=== PATIENT | female | born 1990 | race Hispanic/Latino ===

== ENCOUNTER → 2019-12-13 | Day surgery (SDC) | payer OTHER ==
[2019-12-09 10:19] LABS: BASOPHILS % 0.4 % (0.0-1.0); EOSINOPHILS # (AUTO) 0.1 (0.0-0.4); EOSINOPHILS % 1.9 % (0.0-6.0); HEMATOCRIT 40.6 % (34.2-44.1); HEMOGLOBIN 12.9 g/dL (12.0-16.0); LYMPHOCYTES # (AUTO) 1.9 (1.0-3.2); LYMPHOCYTES % 25.9 % (18.0-39.1); MEAN CORPUSCULAR HEMOGLOBIN 25.8 pg (28-32); MEAN CORPUSCULAR HGB CONC 31.8 g/dL (31-35); MEAN CORPUSCULAR VOLUME 81.2 fL (81-99); MONOCYTES # (AUTO) 0.5 (0.2-0.8); NEUTROPHILS # (AUTO) 4.7 (2.1-6.9); NEUTROPHILS % 64.7 % (38.7-80.0); PLATELET COUNT 234 x10e3/uL (140-360); RED CELL DISTRIBUTION WIDTH 16.6 % (11.7-14.4)
[2019-12-09 11:16] LABS: ALANINE AMINOTRANSFERASE 66 IU/L (0-55); ALBUMIN 3.6 g/dL (3.5-5.0); ALBUMIN/GLOBULIN RATIO 0.9 (0.8-2.0); ALKALINE PHOSPHATASE 85 IU/L (40-150); ANION GAP 12.4 mmol/L (8-16); BLOOD UREA NITROGEN 12 mg/dL (7-26); BUN/CREATININE RATIO 18 (6-25); CALCIUM 8.9 mg/dL (8.4-10.2); CARBON DIOXIDE 25 mmol/L (22-29); CHLORIDE 104 mmol/L (98-107); CREATININE, SERUM 0.68 mg/dL (0.57-1.11); EST GLOMERULAR FILTRATION RATE > 60 ML/MIN (60-); GLUCOSE 111 mg/dL (74-118); POTASSIUM 3.4 mmol/L (3.5-5.1); SODIUM 138 mmol/L (136-145)
[~2019-12-13] MED LIST: ACETAMINOPHEN 1000 MG/100 ML IV ONE; BUPIVACAINE 0.5%/EPI 30 ML SDV INJ ONE; DEXAMETHASONE SOD PHOS INJ 4 MG/ML VIAL ONE; FENTANYL CITRATE/PF 100MCG/2 ML INJ ONE; GLYCOPYRROLATE INJ 0.2 MG/ML VIAL ONE; KETOROLAC TROMETHAMINE 30 MG/ML VIAL ONE; LIDOCAINE HCL 2% LOCAL INJ 5 ML SDV VIAL INJ ONE; MIDAZOLAM HCL 2 MG/2 ML VIAL ONE; NEOSTIGMINE 1 MG/ML 10ML VIAL ONE; ONDANSETRON HCL INJ 2MG/ML 2ML 2 MG/ML VIAL ONE; PROPOFOL IV EMULSION 10 MG/ML 20 ML VIAL ONE; ROCURONIUM BROMIDE 10 MG/ML 5ML VIAL IV ONE; SEVOFLURANE INHAL SOLN 250 ML PEN BTL ONE
--- OUTSIDE RECORDS SUMMARY | 2019-12-13 06:33 | XMS REPORT ---
Author Author [facility] Organization [facility] Address Unknown Phone Unavailable Care Team Providers Care Assembler Crimper Name Role Phone Unavailable Unavailable Payers Payer Name Policy Type Policy Number Effective Date Expiration Date Problems This patient has no known problems. Allergies, Adverse Reactions, Alerts Allergy Name Allergy Type Status Severity Reaction(s) Onset Date Inactive Date Treating Clinician Comments No Known Allergies DA Active U 2016-03-20 00:00:00 Medications This patient has no known medications. Encounters Start Date/Time End Date/Time Encounter Type Admission Type Attending Clinicians Care Facility Care Department Encounter ID 2018-12-17 21:08:24 Inpatient [facility] [id number] 2017-05-06 00:00:00 2017-05-06 00:00:00 Outpatient [facility] [id number] 2017-04-25 00:00:00 2017-04-25 00:00:00 Outpatient [facility] [id number] 2017-03-19 00:00:00 2017-03-19 00:00:00 Outpatient [facility] [id number] 2016-05-31 10:32:11 2016-05-31 10:32:11 Outpatient [facility] [id number] Results Test Description Test Time Test Comments Text Results Atomic Results Result Comments COCAINE PROFILE 2019-12-05 09:38:00 COCAINE + METABOLITES (test code=COCAM) DETECTED Results Confirm Screen Value Cutoff COCAINE benzoylecgonine DETECTED 84 ng/mL 150 ng/mL Test performed by: [facility] [address] [place] [address]. Drug Safety Associate: Jose G Green, Ph.D. BASIC METABOLIC [id number] 23:29:00* Test Item Value Reference Range Comments SODIUM (test code=NA) 141 mmol/L 135-148 POTASSIUM (test code=K) 3.4 mmol/L 3.5-5.1 CHLORIDE (test code=CL) 102 mmol/L 101-109 CARBON DIOXIDE (test code=CO2) 25.5 mmol/L 21-32 ANION GAP (test code=GAP) 17 mmol/L 10-20 GLUCOSE (test code=GLU) 99 mg/dL 74-106 BLOOD UREA NITROGEN (test code=BUN) 17 mg/dL 3-21 GLOMERULAR FILTRATION RATE (test code=GFR) > 60 mL/min >=60 Estimated GFR by using Modified MDRD formula.Chronic kidney disease is defined as either kidney damageor GFR <60 mL/min/1.73 m2 for >3 months. CREATININE (test code=CREAT) 0.77 mg/dL 0.55-1.3 BUN/CREATININE RATIO (test code=BUN/CREA) 22.1 10-20 CALCIUM (test code=CA) 8.8 mg/dL 8.4-10.2 HEPATIC FUNCTION [id number] 23:29:00* Test Item Value Reference Range Comments TOTAL PROTEIN (test code=PROT) 7.8 g/dL 6.5-8.4 ALBUMIN (test code=ALB) 3.3 g/dL 3.4-4.8 GLOBULIN (test code=GLOB) 4.5 G/DL 1-10 ALBUMIN/GLOBULIN RATIO (test code=A/G) 0.73 RATIO 0.75-1.50 BILIRUBIN TOTAL (test code=BILT) 0.30 mg/dL 0.0-1.0 BILIRUBIN DIRECT (test code=BILD) 0.10 mg/dL 0.0-0.30 SGOT/AST (test code=AST) 86 U/L 6-32 SGPT/ALT (test code=ALT) 58 U/L 12-78 Note: Change in REFERENCE RANGE due to new reagent method. ALKALINE PHOSPHATASE TOTAL (test code=ALKP) 99 U/L 38-126 [id number] 23:29:00* Test Item Value Reference Range Comments LIPASE (test code=LIP) 172 U/L 128-270 DRUGS OF ABUSE SCREEN [id number] 23:26:00* Test Item Value Reference Range Comments URN COCAINE (test code=COCAURN) NEGATIVE NEGATIVE URN CANNABINOIDS (test code=CANNABURN) NEGATIVE NEGATIVE URN AMPHETAMINE (test code=AMPHETURN) NEGATIVE NEGATIVE URN BARBITURATE (test code=BARBITURN) NEGATIVE NEGATIVE URN BENZODIAZEPINE (test code=BENZOURN) NEGATIVE NEGATIVE URN OPIATES (test code=OPIATURN) NEGATIVE NEGATIVE URN PHENCYCLIDINE (PCP) (test code=PHENCURN) NEGATIVE NEGATIVE BASIC METABOLIC [id number] 23:23:00* Test Item Value Reference Range Comments SODIUM (test code=NA) 141 mmol/L 135-148 POTASSIUM (test code=K) 3.4 mmol/L 3.5-5.1 CHLORIDE (test code=CL) 102 mmol/L 101-109 CARBON DIOXIDE (test code=CO2) 25.5 mmol/L 21-32 ANION GAP (test code=GAP) 17 mmol/L 10-20 GLUCOSE (test code=GLU) 99 mg/dL 74-106 BLOOD UREA NITROGEN (test code=BUN) 17 mg/dL 3-21 GLOMERULAR FILTRATION RATE (test code=GFR) > 60 mL/min >=60 Estimated GFR by using Modified MDRD formula.Chronic kidney disease is defined as either kidney damageor GFR <60 mL/min/1.73 m2 for >3 months. CREATININE (test code=CREAT) 0.77 mg/dL 0.55-1.3 BUN/CREATININE RATIO (test code=BUN/CREA) 22.1 10-20 CALCIUM (test code=CA) 8.8 mg/dL 8.4-10.2 HEPATIC FUNCTION [id number] 23:23:00* Test Item Value Reference Range Comments TOTAL PROTEIN (test code=PROT) 7.8 g/dL 6.5-8.4 ALBUMIN (test code=ALB) g/dL 3.4-5.0 GLOBULIN (test code=GLOB) g/dL 2.7-4.2 ALBUMIN/GLOBULIN RATIO (test code=A/G) 0.75-1.50 BILIRUBIN TOTAL (test code=BILT) 0.30 mg/dL 0.0-1.0 BILIRUBIN DIRECT (test code=BILD) 0.10 mg/dL 0.0-0.30 SGOT/AST (test code=AST) 86 U/L 6-32 SGPT/ALT (test code=ALT) 58 U/L 12-78 Note: Change in REFERENCE RANGE due to new reagent method. ALKALINE PHOSPHATASE TOTAL (test code=ALKP) 99 U/L 38-126 [id number] 23:23:00* Test Item Value Reference Range Comments LIPASE (test code=LIP) Unit/L 144-286 BASIC METABOLIC [id number] 23:16:00* Test Item Value Reference Range Comments SODIUM (test code=NA) 141 mmol/L 135-148 POTASSIUM (test code=K) 3.4 mmol/L 3.5-5.1 CHLORIDE (test code=CL) 102 mmol/L 101-109 CARBON DIOXIDE (test code=CO2) 25.5 mmol/L 21-32 ANION GAP (test code=GAP) 17 mmol/L 10-20 GLUCOSE (test code=GLU) 99 mg/dL 74-106 BLOOD UREA NITROGEN (test code=BUN) 17 mg/dL 3-21 GLOMERULAR FILTRATION RATE (test code=GFR) > 60 mL/min >=60 Estimated GFR by using Modified MDRD formula.Chronic kidney disease is defined as either kidney damageor GFR <60 mL/min/1.73 m2 for >3 months. CREATININE (test code=CREAT) 0.77 mg/dL 0.55-1.3 BUN/CREATININE RATIO (test code=BUN/CREA) 22.1 10-20 CALCIUM (test code=CA) 8.8 mg/dL 8.4-10.2 HEPATIC FUNCTION [id number] 23:16:00* Test Item Value Reference Range Comments TOTAL PROTEIN (test code=PROT) gram/dL 6.4-8.2 ALBUMIN (test code=ALB) g/dL 3.4-5.0 GLOBULIN (test code=GLOB) g/dL 2.7-4.2 ALBUMIN/GLOBULIN RATIO (test code=A/G) 0.75-1.50 BILIRUBIN TOTAL (test code=BILT) mg/dL 0.2-1.2 BILIRUBIN DIRECT (test code=BILD) mg/dL 0.0-0.20 SGOT/AST (test code=AST) IUnit/L 15-37 SGPT/ALT (test code=ALT) U/L 10-69 ALKALINE PHOSPHATASE TOTAL (test code=ALKP) IUnit/L 45-117 [id number] 23:16:00* Test Item Value Reference Range Comments LIPASE (test code=LIP) Unit/L 144-286 - US ABDOMEN [id number] 23:04:00 Name: ANDERSON HARMON [facility] : 1990 Age/S: 29 / F [address] Unit #: [id number] Loc: [place] [address] Phys: Gómez Laureano MD Acct: [id number] Dis Date: Status: REG ER PHONE #: [phone] Exam Date: 11/30/20198 FAX #: [phone] Reason: Abdominal Pain EXAMS: CPT CODE: [id number] ABDOMEN LTD 22833 EXAM: Ultrasound abdomen limited LOCATION: C3 HISTORY: Abdominal Pain COMPARISON: None available TECHNIQUE: Grayscale B-mode and color Doppler sonographic images of the right upper quadrant were obtained. Spectral Doppler analysis of the main portal vein was performed. FINDINGS: Stone identified in the gallbladder. No gallbladder wall thickening or pericholecystic fluid. The common bile duct is within normal limits measuring 4 mm. Liver is top normal in size measuring 17.2 cm. Liver demonstrates diffuse increase in echogenicity without focal lesion. The main portal vein is patent with hepatopetal flow. The visualized right kidney and pancreas show no significant abnormalities. IMPRESSION: Hepatic steatosis. Cholelithiasis. No gallbladder wall thickening or pericholecystic fluid, however sonographic Ren's sign was positive. A HIDA scan may be obtained if there is concern for cystic duct obstru ction. at 2304 Re ported and signed by: Ricky Linares M.D. CC: Gómez Laureano MD; Vidhya Rosa MD Technologist: Chao Rousseau RDMS Trnscb Date/Time: 11/30/2019 (5520) [id number] Orig Print D/T: S: 11/30/2019 (6151) Probe: PAGE 1 Signed Report CBC W/O DIFF 2019-11-30 22:38:00* Test Item Value Reference Range Comments WHITE BLOOD CELL (test code=WBC) 11.7 K/mm3 4.5-12.5 RED BLOOD CELL (test code=RBC) 5.14 mill/mm3 3.7-5.2 HEMOGLOBIN (test code=HGB) 12.9 gram/dL 11.5-15.5 HEMATOCRIT (test code=HCT) 41.6 % 36.0-46.0 MEAN CELL VOLUME (test code=MCV) 80.9 fL 80-98 MEAN CELL HGB (test code=MCH) 25.1 picogram 27.0-33.0 MEAN CELL HGB CONCETRATION (test code=MCHC) 31.0 gram/dL 33.0-36.0 RED CELL DISTRIBUTION WIDTH (test code=RDW) 15.5 % 11.6-16.2 RED CELL DISTRIBUTION WIDTH SD (test code=RDW-SD) 46.1 fL 37.0-51.0 PLATELET COUNT (test code=PLT) 234 K/mm3 150-450 MEAN PLATELET VOLUME (test code=MPV) 10.8 fL 6.7-11.0 URINALYSIS [id number] 22:21:00* Test Item Value Reference Range Comments UA COLOR (test code=COLU) YELLOW YELLOW UA APPEARANCE (test code=APPU) SLIGHT CLOUDY CLEAR UA GLUCOSE DIPSTICK (test code=DGLUU) norm mg/dL NEGATIVE UA BILIRUBIN DIPSTICK (test code=BILU) NEGATIVE mg/dL NEGATIVE UA KETONE DIPSTICK (test code=KETU) 5 (Trace) mg/dL NEGATIVE UA SPECIFIC GRAVITY (test code=SGU) 1.015 1.001-1.035 UA BLOOD DIPSTICK (test code=TAYLOR) neg Vlad/uL NEGATIVE UA PH DIPSTICK (test code=BRUCE) 7.0 5.0-8.0 UA PROTEIN DIPSTICK (test code=PROU) neg mg/dL Neg-15 UA UROBILINIOGEN DIPSTICK (test code=URO) norm mg/dL 0.0-0.2 UA NITRITE DIPSTICK (test code=LANNY) NEGATIVE NEGATIVE UA LEUKOCYTE ESTERASE DIPSTICK (test code=LEUU) 100 Jose Francisco/uL (1+) uL NEGATIVE UA WBC (test code=WBCU) 3-5 per HPF 0-5 UA RBC (test code=RBCU) NONE SEEN per HPF 0-5 UA EPITHELIAL CELLS (test code=EPIU) Moderate (5-10/hpf) per HPF Few UA BACTERIA (test code=BACU) MANY per HPF NONE Urine Source? Clean CatchUR HCG [id number] 22:21:00* Test Item Value Reference Range Comments UR HCG QUAL (test code=HCGQLU) NEGATIVE This HCGQL test is NOT applicable for MALE patients.Check with nurse about probable order error.If Tumor Marker Test needed, nurse should order test "HCGTU"(Test #550.56679) Urine Source? Clean CatchURINALYSIS [id number] 22:20:00* Test Item Value Reference Range Comments UA COLOR (test code=COLU) YELLOW YELLOW UA APPEARANCE (test code=APPU) SLIGHT CLOUDY CLEAR UA GLUCOSE DIPSTICK (test code=DGLUU) norm mg/dL NEGATIVE UA BILIRUBIN DIPSTICK (test code=BILU) NEGATIVE mg/dL NEGATIVE UA KETONE DIPSTICK (test code=KETU) 5 (Trace) mg/dL NEGATIVE UA SPECIFIC GRAVITY (test code=SGU) 1.015 1.001-1.035 UA BLOOD DIPSTICK (test code=TAYLOR) neg Vlad/uL NEGATIVE UA PH DIPSTICK (test code=BRUCE) 7.0 5.0-8.0 UA PROTEIN DIPSTICK (test code=PROU) neg mg/dL Neg-15 UA UROBILINIOGEN DIPSTICK (test code=URO) norm mg/dL 0.0-0.2 UA NITRITE DIPSTICK (test code=LANNY) NEGATIVE NEGATIVE UA LEUKOCYTE ESTERASE DIPSTICK (test code=LEUU) 100 Jose Francisco/uL (1+) uL NEGATIVE UA WBC (test code=WBCU) per HPF 0-5 UA RBC (test code=RBCU) per HPF 0-5 UA EPITHELIAL CELLS (test code=EPIU) per HPF Few UA BACTERIA (test code=BACU) per HPF NONE Urine Source? Clean CatchUR HCG [id number] 22:20:00* Test Item Value Reference Range Comments UR HCG QUAL (test code=HCGQLU) NEGATIVE This HCGQL test is NOT applicable for MALE patients.Check with nurse about probable order error.If Tumor Marker Test needed, nurse should order test "HCGTU"(Test #550.58065) Urine Source? Clean CatchURINALYSIS [id number] 22:19:00* Test Item Value Reference Range Comments UA COLOR (test code=COLU) YELLOW YELLOW UA APPEARANCE (test code=APPU) SLIGHT CLOUDY CLEAR UA GLUCOSE DIPSTICK (test code=DGLUU) norm mg/dL NEGATIVE UA BILIRUBIN DIPSTICK (test code=BILU) NEGATIVE mg/dL NEGATIVE UA KETONE DIPSTICK (test code=KETU) 5 (Trace) mg/dL NEGATIVE UA SPECIFIC GRAVITY (test code=SGU) 1.015 1.001-1.035 UA BLOOD DIPSTICK (test code=TAYLOR) neg Vlad/uL NEGATIVE UA PH DIPSTICK (test code=BRUCE) 7.0 5.0-8.0 UA PROTEIN DIPSTICK (test code=PROU) neg mg/dL Neg-15 UA UROBILINIOGEN DIPSTICK (test code=URO) norm mg/dL 0.0-0.2 UA NITRITE DIPSTICK (test code=LANNY) NEGATIVE NEGATIVE UA LEUKOCYTE ESTERASE DIPSTICK (test code=LEUU) 100 Jose Francisco/uL (1+) uL NEGATIVE UA WBC (test code=WBCU) per HPF 0-5 UA RBC (test code=RBCU) per HPF 0-5 UA EPITHELIAL CELLS (test code=EPIU) per HPF Few UA BACTERIA (test code=BACU) per HPF NONE Urine Source? Clean CatchUR HCG [id number] 22:19:00* Test Item Value Reference Range Comments UR HCG QUAL (test code=HCGQLU) Urine Source? Clean [id number] 00:05:00* Test Item Value Reference Range Comments D-DIMER (test code=DDIMER) < 100 ng/ml < 600 - US ABDOMEN [id number] 23:49:00 [facility] 1990 Age[facility]S: 29 / F [address] Unit #: [id number] Loc: [place] [address] Phys: Mirella Jackson MD Acct: [id number] Dis Date: Status: REG ER PHONE #: [phone] Exam Date: 05/27/20192339 FAX #: [phone] Reason: CP EXAMS: CPT CODE: [id number] US ABDOMEN LTD 68887 EXAM: - US ABDOMEN LTD HISTORY: Pain COMPARISON: None available time of interpretation. TECHNIQUE: Grayscale B-mode and color Doppler sonographic images of the right upper quadrant were obtained. FINDINGS: Shadowing gallstones are present. No significant gallbladder wall thickening or pericholecystic fluid. The common bile duct is within normal limits measuring 4 mm. No focal liver lesion is demonstrated. Hepatopedal flow is present in main portal vein. The visualized right kidney, IVC, and abdominal aorta show no significant abnormalities. The pancreas is not visualized. Limited exam. IMPRESSION: Cholelithiasis. No evidence of acute cholecystitis. at 2349 Reported and signed by: Silvestre Linares MD CC: Ina Rosa MD Technologist: Lynn Ruiz Trnksb Date/Time: 05/27/2019 (6708) [id number] Orig Print D/T: S: 05/27/2019 (0347) Probe: PAGE 1 Signed Report URINALYSIS [id number] 23:46:00* Test Item Value Reference Range Comments UA COLOR (test code=COLU) YELLOW YELLOW UA APPEARANCE (test code=APPU) CLEAR CLEAR UA GLUCOSE DIPSTICK (test code=DGLUU) norm mg/dL NEGATIVE UA BILIRUBIN DIPSTICK (test code=BILU) NEGATIVE mg/dL NEGATIVE UA KETONE DIPSTICK (test code=KETU) neg mg/dL NEGATIVE UA SPECIFIC GRAVITY (test code=SGU) 1.020 1.001-1.035 UA BLOOD DIPSTICK (test code=TAYLOR) neg Vlad/uL NEGATIVE UA PH DIPSTICK (test code=BRUCE) 6.0 5.0-8.0 UA PROTEIN DIPSTICK (test code=PROU) neg mg/dL Neg-15 UA UROBILINIOGEN DIPSTICK (test code=URO) norm mg/dL 0.0-0.2 UA NITRITE DIPSTICK (test code=LANNY) NEGATIVE NEGATIVE UA LEUKOCYTE ESTERASE DIPSTICK (test code=LEUU) neg uL NEGATIVE UA WBC (test code=WBCU) 0-5 per HPF 0-5 UA RBC (test code=RBCU) 0-3 per HPF 0-5 UA EPITHELIAL CELLS (test code=EPIU) Few (2-5/hpf) per HPF Few UA BACTERIA (test code=BACU) FEW per HPF NONE Urine Source? Clean CatchDRUGS OF ABUSE SCREEN [id number] 23:46:00* Test Item Value Reference Range Comments URN COCAINE (test code=COCAURN) NEGATIVE NEGATIVE URN CANNABINOIDS (test code=CANNABURN) NEGATIVE NEGATIVE URN AMPHETAMINE (test code=AMPHETURN) NEGATIVE NEGATIVE URN BARBITURATE (test code=BARBITURN) NEGATIVE NEGATIVE URN BENZODIAZEPINE (test code=BENZOURN) NEGATIVE NEGATIVE URN OPIATES (test code=OPIATURN) NEGATIVE NEGATIVE URN PHENCYCLIDINE (PCP) (test code=PHENCURN) NEGATIVE NEGATIVE Urine Source? Clean CatchBASIC METABOLIC [id number] 23:43:00* Test Item Value Reference Range Comments SODIUM (test code=NA) 140 mmol/L 136-145 POTASSIUM (test code=K) 3.3 mmol/L 3.5-5.1 CHLORIDE (test code=CL) 103 mmol/L 101-109 CARBON DIOXIDE (test code=CO2) 25.5 mmol/L 21-32 ANION GAP (test code=GAP) 15 mmol/L 10-20 GLUCOSE (test code=GLU) 113 mg/dL 74-106 BLOOD UREA NITROGEN (test code=BUN) 17 mg/dL 3-21 GLOMERULAR FILTRATION RATE (test code=GFR) > 60 mL/min >=60 Estimated GFR by using Modified MDRD formula.Chronic kidney disease is defined as either kidney damageor GFR <60 mL/min/1.73 m2 for >3 months. CREATININE (test code=CREAT) 0.71 mg/dL 0.55-1.3 BUN/CREATININE RATIO (test code=BUN/CREA) 23.9 10-20 CALCIUM (test code=CA) 8.7 mg/dL 8.4-10.2 HEPATIC FUNCTION [id number] 23:43:00* Test Item Value Reference Range Comments TOTAL PROTEIN (test code=PROT) 8.0 g/dL 6.5-8.4 ALBUMIN (test code=ALB) 3.3 g/dL 3.4-4.8 GLOBULIN (test code=GLOB) 4.7 G/DL 1-10 ALBUMIN/GLOBULIN RATIO (test code=A/G) 0.70 RATIO 0.75-1.50 BILIRUBIN TOTAL (test code=BILT) 0.10 mg/dL 0.0-1.0 BILIRUBIN DIRECT (test code=BILD) 0.00 mg/dL 0.0-0.30 SGOT/AST (test code=AST) 27 U/L 6-32 SGPT/ALT (test code=ALT) 32 U/L 12-78 Note: Change in REFERENCE RANGE due to new reagent method. ALKALINE PHOSPHATASE TOTAL (test code=ALKP) 103 U/L 38-126 [id number] 23:43:00* Test Item Value Reference Range Comments LIPASE (test code=LIP) 189 U/L 128-270 HCG SERUM [id number] 23:43:00* Test Item Value Reference Range Comments HCG SERUM QUAL (test code=HCGQL) NEGATIVE NEGATIVE This HCGQL test is NOT applicable for MALE patients.Check with nurse about probable order error.If Tumor Marker Test needed, nurse should order test "HCGTU"(Test #550.34200) [id number] 23:43:00* Test Item Value Reference Range Comments TROPONIN-I (test code=TROPI) <0.015 ng/mL 0.00-0.056 URINALYSIS [id number] 23:39:00* Test Item Value Reference Range Comments UA COLOR (test code=COLU) YELLOW YELLOW UA APPEARANCE (test code=APPU) CLEAR CLEAR UA GLUCOSE DIPSTICK (test code=DGLUU) norm mg/dL NEGATIVE UA BILIRUBIN DIPSTICK (test code=BILU) NEGATIVE mg/dL NEGATIVE UA KETONE DIPSTICK (test code=KETU) neg mg/dL NEGATIVE UA SPECIFIC GRAVITY (test code=SGU) 1.020 1.001-1.035 UA BLOOD DIPSTICK (test code=TAYLOR) neg Vlad/uL NEGATIVE UA PH DIPSTICK (test code=BRUCE) 6.0 5.0-8.0 UA PROTEIN DIPSTICK (test code=PROU) neg mg/dL Neg-15 UA UROBILINIOGEN DIPSTICK (test code=URO) norm mg/dL 0.0-0.2 UA NITRITE DIPSTICK (test code=LANNY) NEGATIVE NEGATIVE UA LEUKOCYTE ESTERASE DIPSTICK (test code=LEUU) neg uL NEGATIVE UA WBC (test code=WBCU) per HPF 0-5 UA RBC (test code=RBCU) per HPF 0-5 UA EPITHELIAL CELLS (test code=EPIU) per HPF Few UA BACTERIA (test code=BACU) per HPF NONE Urine Source? Clean CatchDRUGS OF ABUSE SCREEN [id number] 23:39:00* Test Item Value Reference Range Comments URN COCAINE (test code=COCAURN) NEGATIVE NEGATIVE URN CANNABINOIDS (test code=CANNABURN) NEGATIVE NEGATIVE URN AMPHETAMINE (test code=AMPHETURN) NEGATIVE NEGATIVE URN BARBITURATE (test code=BARBITURN) NEGATIVE NEGATIVE URN BENZODIAZEPINE (test code=BENZOURN) NEGATIVE NEGATIVE URN OPIATES (test code=OPIATURN) NEGATIVE NEGATIVE URN PHENCYCLIDINE (PCP) (test code=PHENCURN) NEGATIVE NEGATIVE Urine Source? Clean CatchURINALYSIS [id number] 23:26:00* Test Item Value Reference Range Comments UA COLOR (test code=COLU) YELLOW YELLOW UA APPEARANCE (test code=APPU) CLEAR CLEAR UA GLUCOSE DIPSTICK (test code=DGLUU) norm mg/dL NEGATIVE UA BILIRUBIN DIPSTICK (test code=BILU) NEGATIVE mg/dL NEGATIVE UA KETONE DIPSTICK (test code=KETU) neg mg/dL NEGATIVE UA SPECIFIC GRAVITY (test code=SGU) 1.020 1.001-1.035 UA BLOOD DIPSTICK (test code=TAYLOR) neg Vlad/uL NEGATIVE UA PH DIPSTICK (test code=BRUCE) 6.0 5.0-8.0 UA PROTEIN DIPSTICK (test code=PROU) neg mg/dL Neg-15 UA UROBILINIOGEN DIPSTICK (test code=URO) norm mg/dL 0.0-0.2 UA NITRITE DIPSTICK (test code=LANNY) NEGATIVE NEGATIVE UA LEUKOCYTE ESTERASE DIPSTICK (test code=LEUU) neg uL NEGATIVE UA WBC (test code=WBCU) per HPF 0-5 UA RBC (test code=RBCU) per HPF 0-5 UA EPITHELIAL CELLS (test code=EPIU) per HPF Few UA BACTERIA (test code=BACU) per HPF NONE Urine Source? Clean CatchDRUGS OF ABUSE SCREEN [id number] 23:26:00* Test Item Value Reference Range Comments URN COCAINE (test code=COCAURN) NEGATIVE URN CANNABINOIDS (test code=CANNABURN) NEGATIVE URN AMPHETAMINE (test code=AMPHETURN) NEGATIVE URN BARBITURATE (test code=BARBITURN) NEGATIVE URN BENZODIAZEPINE (test code=BENZOURN) NEGATIVE URN OPIATES (test code=OPIATURN) NEGATIVE URN PHENCYCLIDINE (PCP) (test code=PHENCURN) NEGATIVE Urine Source? Clean CatchBASIC METABOLIC [id number] 23:19:00* Test Item Value Reference Range Comments SODIUM (test code=NA) 140 mmol/L 136-145 POTASSIUM (test code=K) 3.3 mmol/L 3.5-5.1 CHLORIDE (test code=CL) 103 mmol/L 101-109 CARBON DIOXIDE (test code=CO2) 25.5 mmol/L 21-32 ANION GAP (test code=GAP) 15 mmol/L 10-20 GLUCOSE (test code=GLU) 113 mg/dL 74-106 BLOOD UREA NITROGEN (test code=BUN) 17 mg/dL 3-21 GLOMERULAR FILTRATION RATE (test code=GFR) > 60 mL/min >=60 Estimated GFR by using Modified MDRD formula.Chronic kidney disease is defined as either kidney damageor GFR <60 mL/min/1.73 m2 for >3 months. CREATININE (test code=CREAT) 0.71 mg/dL 0.55-1.3 BUN/CREATININE RATIO (test code=BUN/CREA) 23.9 10-20 CALCIUM (test code=CA) 8.7 mg/dL 8.4-10.2 HEPATIC FUNCTION [id number] 23:19:00* Test Item Value Reference Range Comments TOTAL PROTEIN (test code=PROT) 8.0 g/dL 6.5-8.4 ALBUMIN (test code=ALB) 3.3 g/dL 3.4-4.8 GLOBULIN (test code=GLOB) 4.7 G/DL 1-10 ALBUMIN/GLOBULIN RATIO (test code=A/G) 0.70 RATIO 0.75-1.50 BILIRUBIN TOTAL (test code=BILT) 0.10 mg/dL 0.0-1.0 BILIRUBIN DIRECT (test code=BILD) 0.00 mg/dL 0.0-0.30 SGOT/AST (test code=AST) 27 U/L 6-32 SGPT/ALT (test code=ALT) 32 U/L 12-78 Note: Change in REFERENCE RANGE due to new reagent method. ALKALINE PHOSPHATASE TOTAL (test code=ALKP) 103 U/L 38-126 [id number] 23:19:00* Test Item Value Reference Range Comments LIPASE (test code=LIP) 189 U/L 128-270 HCG SERUM [id number] 23:19:00* Test Item Value Reference Range Comments HCG SERUM QUAL (test code=HCGQL) NEGATIVE [id number] 23:19:00* Test Item Value Reference Range Comments TROPONIN-I (test code=TROPI) <0.015 ng/mL 0.00-0.056 - XR CHEST 1 [id number] 23:13:00 [facility] 1990 Age[facility]S:29 /F [address] Unit#:[id number] Loc: [place] [address] Phys: Mirella Jackson MD Dis Date: PHONE #: [phone] Status: REG ER FAX #: [phone] Exam Date: 05/27/2019 Reason: CHEST PAIN EXAMS: CPT CODE: [id number] XR CHEST 1 V [id number] EXAM: - XR CHEST 1 V HISTORY: Chest pain. COMPARISON: May 19, 2007. FINDINGS: Single AP view of the chest is provided. Heart size and vascularity are within normal limits. The lungs are clear of focal consolidation. No effusion, pneumothorax, or acute osseous abnormality. There is no significant change compared to previous exam. IMPRESSION: No radiographic evidence of acute cardiopulmonary process. at 8052 Reported and signed by: Silvestre Urban MD CC: Ina Rosa MD Technologist: KADE ACEVES RT(R),CT Trnscrpt Data: 05/27/2019 ([id number]) [email or web address] Orig Print D/T: S: 05/27/2019 ([id number]) PAGE 1 Signed Report BASIC METABOLIC [id number] 23:10:00* Test Item Value Reference Range Comments SODIUM (test code=NA) 140 mmol/L 136-145 POTASSIUM (test code=K) 3.3 mmol/L 3.5-5.1 CHLORIDE (test code=CL) 103 mmol/L 101-109 CARBON DIOXIDE (test code=CO2) 25.5 mmol/L 21-32 ANION GAP (test code=GAP) 15 mmol/L 10-20 GLUCOSE (test code=GLU) 113 mg/dL 74-106 BLOOD UREA NITROGEN (test code=BUN) 17 mg/dL 3-21 GLOMERULAR FILTRATION RATE (test code=GFR) > 60 mL/min >=60 Estimated GFR by using Modified MDRD formula.Chronic kidney disease is defined as either kidney damageor GFR <60 mL/min/1.73 m2 for >3 months. CREATININE (test code=CREAT) 0.71 mg/dL 0.55-1.3 BUN/CREATININE RATIO (test code=BUN/CREA) 23.9 10-20 CALCIUM (test code=CA) 8.7 mg/dL 8.4-10.2 HEPATIC FUNCTION [id number] 23:10:00* Test Item Value Reference Range Comments TOTAL PROTEIN (test code=PROT) gram/dL 6.4-8.2 ALBUMIN (test code=ALB) g/dL 3.4-5.0 GLOBULIN (test code=GLOB) g/dL 2.7-4.2 ALBUMIN/GLOBULIN RATIO (test code=A/G) 0.75-1.50 BILIRUBIN TOTAL (test code=BILT) mg/dL 0.2-1.2 BILIRUBIN DIRECT (test code=BILD) mg/dL 0.0-0.20 SGOT/AST (test code=AST) IUnit/L 15-37 SGPT/ALT (test code=ALT) U/L 10-69 ALKALINE PHOSPHATASE TOTAL (test code=ALKP) IUnit/L 45-117 [id number] 23:10:00* Test Item Value Reference Range Comments LIPASE (test code=LIP) Unit/L 144-286 HCG SERUM [id number] 23:10:00* Test Item Value Reference Range Comments HCG SERUM QUAL (test code=HCGQL) NEGATIVE [id number] 23:10:00* Test Item Value Reference Range Comments TROPONIN-I (test code=TROPI) ng/mL 0-0.045 CBC W/O [id number] 22:48:00* Test Item Value Reference Range Comments WHITE BLOOD CELL (test code=WBC) 9.8 K/mm3 4.5-12.5 RED BLOOD CELL (test code=RBC) 4.94 mill/mm3 3.7-5.2 HEMOGLOBIN (test code=HGB) 12.7 gram/dL 11.5-15.5 HEMATOCRIT (test code=HCT) 39.6 % 36.0-46.0 MEAN CELL VOLUME (test code=MCV) 80.2 fL 80-98 MEAN CELL HGB (test code=MCH) 25.7 picogram 27.0-33.0 MEAN CELL HGB CONCETRATION (test code=MCHC) 32.1 gram/dL 33.0-36.0 RED CELL DISTRIBUTION WIDTH (test code=RDW) 14.5 % 11.6-16.2 RED CELL DISTRIBUTION WIDTH SD (test code=RDW-SD) 42.3 fL 37.0-51.0 PLATELET COUNT (test code=PLT) 234 K/mm3 150-450 MEAN PLATELET VOLUME (test code=MPV) 10.9 fL 6.7-11.0
--- NOTE | 2019-12-13 07:25 | NUR ---
SPIRITUAL CARE - Pre-Surgery Assessment: Pt in bed. Pt's at bedside. Pt reported supportive attention from family and friends. Intervention: I provided pastoral presence, hospitality, and sympathetic listening. I acquainted pt with availability of electrician shop while hospitalized. Outcome: Pt expressed appreciation for visit. No need for follow up indicated at this time. ALEXA [facility] Spiritual Care Department O: [phone]
--- NOTE | 2019-12-13 11:12 | Operative Report ---
DATE OF PROCEDURE: 12/13/2019 SURGEON: Cassius Lama MD PREOPERATIVE DIAGNOSES: Cholecystitis and cholelithiasis. POSTOPERATIVE DIAGNOSES: Cholecystitis and cholelithiasis. OPERATION PERFORMED: Laparoscopic cholecystectomy. GEOSCIENCES ASSOCIATE PROFESSOR: Jensen Lama MD. ANESTHESIA: General endotracheal. COMPLICATIONS: None. ESTIMATED BLOOD LOSS: Minimal. DESCRIPTION OF PROCEDURE: With the patient lying in bed in the supine position under good general endotracheal anesthesia, the abdomen was prepped with Betadine solution and draped in the usual manner. A Veress needle was introduced into the right upper quadrant and pneumoperitoneum was established without any difficulty. A 5 mm trocar was placed in the right subcostal region and a 5 mm video laparoscope was placed into the intraabdominal cavity. Under direct vision, an 11 mm trocar was placed into the umbilicus and a 10 mm video laparoscope was placed into the intraabdominal cavity. Under direct vision, two more 5 mm trocars were placed in the right subcostal region. Video laparoscopy at this point revealed a gallbladder that had some adhesions with the duodenum being stuck to the lower half of the gallbladder. There was some fatty infiltration of the liver. The rest of the exploration was otherwise within normal limits. The adhesions to the gallbladder were then slowly and carefully taken down. The peritoneum overlying the neck of the gallbladder was then opened and the cystic duct was identified. The cystic duct was followed to its junction with the common duct. The cystic duct was then circumferentially dissected away from the common duct, doubly clipped and divided. The cystic artery was similarly doubly clipped and divided. The gallbladder was then slowly and carefully taken off the liver bed using the cautery scissors and perfect hemostasis was ascertained. The gallbladder was grasped through the umbilical port and removed. Video laparoscopy was then again carried out. The liver bed was found to be perfectly dry. All the excess fluid was aspirated. The pneumoperitoneum was evacuated and all the trocars were removed under direct vision. The midline fascia at the umbilicus was then closed with a [id number] of 0 Vicryl. All layers were infiltrated on the way out with solution of 0.25% Marcaine. Subcutaneous tissue was approximated with 3-0 Vicryl and the skin was closed with subcuticular 5-0 Vicryl. Benzoin, Steri-Strips, and Band-Aids were applied. The sponge, lap, and needle counts were correct. The patient tolerated the procedure well and returned to the recovery room in stable condition. MD JEMIMA Barrios/ALISHA /[id number]
[2019-12-13 11:35] VITALS: BP 127/77
== END | disposition home or self-care (01) ==
LOC: OR 06:27 → EDBD 09:30
PROVIDERS: ATTEND Surgery
DX: K80.10 Calculus of gallbladder with chronic cholecystitis without obstruction (principal); K76.0 Fatty (change of) liver, not elsewhere classified; D64.9 Anemia, unspecified; E66.01 Morbid (severe) obesity due to excess calories; Z72.0 Tobacco use; Z01.812 Encounter for preprocedural laboratory examination
CPT/HCPCS: 36415; 47562; 80053; 81025; 85025; 87635; 88304; C1766; J0131; J1100; J1885; J2001; J2250; J2405; J2704; J2710; J3010